=== PATIENT | female | born 2000 | race Two or more races ===

== ENCOUNTER 2024-08-26 14:25 | Emergency (ER) | payer MEDICAID, SELFPAY ==
[2024-08-26 15:08] VITALS: BP 101/63; PULSE 73; RESP 16; TEMP 37; O2SAT 100; BMI 25.4
--- NOTE | 2024-08-26 15:11 | PD.EDSKIN ---
ED Skin Abcess FB-RME/HPI General Chief complaint: Skin/Abscess/Foreign Body Stated complaint: Rash today after eating Time Seen by Provider: 08/26/24 14:38 Arrival date/time: 08/26/24 14:25 24-year-old female presents to department today for complaints of rash after eating shrimp today patient reports no difficulty breathing no difficulty swallowing Limitations: no limitations Related Data Previous Rx's ?Medication ?Instructions ?Recorded famotidine 20 mg tablet 20 mg PO QDAY #30 tabs 08/14/23 diphenhydramine HCl 25 mg capsule 25 mg PO Q8H PRN allergic symptoms 08/26/24 (Benadryl) #30 caps prednisone 10 mg tablet 30 mg (3 x 10 mg) PO BID 3 days 08/26/24 #18 tabs Allergies Allergy/AdvReac Type Severity Reaction Status Date / Time Penicillins Allergy Intermediate Hives Verified 08/26/24 14:30 Review of Systems Review of Systems Systems Reviewed: All systems reviewed, normal except as documented Constitutional Constitutional: Reports system reviewed and no additional complaints, except as documented, Denies fever(s) and Denies headache(s) Eyes Eyes: Reports system reviewed and no additional complaints, except as documented and Denies blurry vision ENT Ears, Nose, Mouth, and Throat: Reports system reviewed and no additional complaints, except as documented, Denies headache(s), Denies nasal congestion and Denies nasal discharge Cardiovascular Cardiovascular: Reports system reviewed and no additional complaints, except as documented, Denies chest pain and Denies dyspnea Respiratory Respiratory: Reports system reviewed and no additional complaints, except as documented, Denies chest congestion, Denies cough and Denies dyspnea Gastrointestinal Gastrointestinal: Reports system reviewed and no additional complaints, except as documented and Denies abdominal pain Integumentary/Breasts Skin/Breast: Reports system reviewed and no additional complaints, except as documented, Reports erythema, Reports pruritus and Reports rash Neurologic Neurologic: Reports system reviewed and no additional complaints, except as documented, Reports as per HPI and Denies headache(s) Past Medical History Past Medical History CARDIAC: Negative Congestive Heart Failure RESPIRATORY: Negative Chronic Obstructive Pulmonary Disease (COPD) GENITOURINARY: Negative Renal Disease ENDOCRINE: Negative Diabetes Mellitus Type 1 or Diabetes Mellitus Type 2 Social History SMOKING STATUS: Never smoker ED Exam General Limitations: Present no limitations General appearance: Present alert and in no apparent distress Head Head exam: Present atraumatic, normocephalic and normal inspection Eye Eye exam: Present normal appearance, PERRL and EOMI; Absent conjunctival injection ENT ENT exam: Present normal exam, normal oropharynx and mucous membranes moist Neck Neck exam: Present normal inspection, full ROM and trachea midline Chest Chest inspection: Present normal inspection and symmetric chest wall rise Respiratory Respiratory exam: Present normal lung sounds bilaterally; Absent respiratory distress Cardiovascular Cardiovascular exam: Present regular rate, normal rhythm and normal heart sounds Abdominal Exam Abdominal exam: Present soft and normal bowel sounds Extremities Exam Extremities exam: Present normal inspection and full ROM Back Exam Back exam: Present normal inspection and full ROM Neurological Exam Neurological exam: Present alert, oriented X3, CN II-XII intact, normal gait and reflexes normal; Absent motor sensory deficit Psychiatric Psychiatric exam: Present normal affect and normal mood Skin Skin exam: Present warm, dry, intact and rash Course Quality Measures none Orders Category Date Time Status Dexamethasone Inj [Decadron Inj] Med 08/26/24 15:10 Discontinued 10 mg IM X1 ONE DiphenhydrAMINE [Benadryl] Med 08/26/24 15:10 Discontinued 25 mg PO X1 ONE Vital Signs Vital signs: Vital Signs Temperature 98.6 F 08/26/24 15:08 Pulse Rate 73 08/26/24 15:08 Respiratory Rate 16 08/26/24 15:08 Blood Pressure 101/63 08/26/24 15:08 Pulse Oximetry (%) 100 08/26/24 15:08 Oxygen Delivery Method Room Air 08/26/24 15:08 O2 saturation 100% room air with normal Skin / Abscess / Foreign Body MDM Narrative MDM Narrative:: 24-year-old female presents to department today for complaints of rash after eating shrimp today patient reports no difficulty breathing no difficulty swallowing. Patient ports no chance On exam patient well-appearing patient does not appear toxic in no acute distress On exam patient has hives consistent with urticaria/allergic reaction Patient medicated here improved symptoms Patient discharged home in no distress to follow-up with primary care doctor in the next 24 to 48 hours and for any worsening symptoms to return to the ER immediately Patient data External records reviewed:: [facility] previous records Clinical information provided by:: patient Social determinants that could affect healthcare access:: none Patient has the following chronic illnesses:: None How is presenting disease/condition affected by chronic disease/condition?: no chronic disease Evaluation data The following diagnostics were reviewed and interpreted by me:: other (specify) Lab and/or radiology exams considered but not ordered:: Consider not ordered Interpretation Summary: N/A Medications / Prescriptions Medications or Prescriptions considered but not ordered:: Given Medication administrations:: Medication Administration History Discontinued Medications Dexamethasone Sodium Phosphate (Dexamethasone Sod Phos Inj 10 Mg/Ml Vial) 10 mg IM X1 ONE Stop: 08/26/24 15:11 Last Admin: 08/26/24 15:28 Dose: 10 mg Documented By: Diphenhydramine HCl (Diphenhydramine 25 Mg Capsule) 25 mg PO X1 ONE Stop: 08/26/24 15:11 Last Admin: 08/26/24 15:27 Dose: 25 mg Documented By: Given Consultations Consultation(s) initiated? (list below): No Diagnosis Skin/Abscess Differential Diagnosis: abscess of skin or subcutaneous tissue, urticaria and contact dermatitis Most likely diagnosis given after review of the tests above:: Allergic reaction Admission Indicated Admission indicated?: not indicated Admission Request Was there a request for admission?: No Disposition Plan Disposition Plan: Discharge Discharge Attestation Discharge Attestation: The patient and all family members were given an opportunity to ask questions and understood the discharge instructions. Discharge instructions specifically effects, indications for sooner follow up or return to the emergency department, and the expected course of current diagnosis. Patient condition: Stable Discharge Plan Plan Patient Disposition: HOME (Self Care) Discharge Disposition comment: Stable Prescriptions/Referrals Prescriptions/Med Rec: New prednisone 10 mg tablet 30 mg PO BID 3 Days Qty: 18 0RF diphenhydramine HCl [Benadryl] 25 mg capsule 25 mg PO Q8H PRN (Reason: allergic symptoms) Qty: 30 0RF No Action famotidine 20 mg tablet 20 mg PO QDAY Qty: 30 0RF Problem List Clinical Impression: Urticaria Patient/Caregiver Discharge Instructions Education Materials: ED Hives (Adult) Additional Instructions: Please follow up with your primary care doctor in the next 24-48hrs for any worsening symptoms return here immediately Print Language: Central African Stand Alone Forms: Arabella Award Info., Patient Portal Info Letter PA/GANG BORE OPERATOR Supervising Physician PA/GANG BORE OPERATOR Supervising Physician: Dr hogue
[2024-08-26] MEDS: DEXAMETHASONE SOD PHOS INJ 10 MG/ML VIAL IM (15:28)
== END 2024-08-26 16:15 | disposition home or self-care (01) ==
LOC: SERX 15:58
PROVIDERS: Emergency Provider Emergency Medicine; PCP Nurse Practitioner Family
DX: L50.9 Urticaria, unspecified (principal)
CPT/HCPCS: 96372; 99283; J1100; A9270

== ENCOUNTER 2024-11-18 17:48 | Emergency (ER) | payer MEDICAID, SELFPAY ==
[2024-11-18 18:45] VITALS: BP 110/64; PULSE 63; RESP 18; TEMP 36.8; O2SAT 99; BMI 23.5
--- NOTE | 2024-11-18 19:02 | EDNOTE_ITS ---
Lower Extremity Injury RME/HPI General Chief Complaint: Ankle/Foot Injury Stated Complaint: INGROWN TOENAIL, R) GREAT TOE Time Seen by Provider: 11/18/24 18:59 Arrival date/time: 11/18/24 17:48 24F with no significant PMH presents to ED with intermittent but worsening R ingrown toenail. Limitations: no limitations Related Data Previous Rx's ?Medication ?Instructions ?Recorded famotidine 20 mg tablet 20 mg PO QDAY #30 tabs 08/13 diphenhydramine HCl 25 mg capsule 25 mg PO Q8H PRN all ergic symptoms 08/26/24 (Benadryl) #30 caps sulfamethoxazole 800 1 tab PO BID 7 days #14 tabs 11/18/24 mg-trimethoprim 160 mg tablet (Bactrim DS) Allergies Allergy/AdvReac Type Severity Reaction Status Date / Time Penicillins Allergy Intermediate Hives Verified 11/18/24 17:51 Review of Systems Review of Systems Systems Reviewed: All systems reviewed, normal except as documented Integumentary/Breasts Skin/Breast: Reports as per HPI and Reports skin pain Past Medical History Past Medical History CARDIAC: Negative Congestive Heart Failure RESPIRATORY: Negative Chronic Obstructive Pulmonary Disease (COPD) GENITOURINARY: Negative Renal Disease ENDOCRINE: Negative Diabetes Mellitus Type 1 or Diabetes Mellitus Type 2 Social History SMOKING STATUS: Never smoker ED Exam General Limitations: Present no limitations General appearance: Present alert and in no apparent distress Head Head exam: Present atraumatic Neck Neck exam: Present normal inspection, full ROM and trachea midline Chest Chest inspection: Present normal inspection and symmetric chest wall rise Extremities Exam Extremities exam: Present full ROM Expanded Lower Extremity Exam Foot/toe exam: Present full ROM, swelling (R big toenail on R side) and erythema Neurological Exam Neurological exam: Present alert and oriented X3 Psychiatric Psychiatric exam: Present normal affect and normal mood Skin Skin exam: Present warm, dry, intact and normal color Course Quality Measures none Orders Category Date Time Status Naproxen [Naprosyn] Med 11/18/24 18:59 Once 500 mg PO X1 ONE Trimethoprim/Sulfa 160/800 Ds [Bactrim Ds] Med 11/18/24 19:00 Once 1 tab PO X1 ONE Vital Signs Vital signs: Vital Signs Temperature 98.2 F 11/18/24 18:45 Pulse Rate 63 11/18/24 18:45 Respiratory Rate 18 11/18/24 18:45 Blood Pressure 110/64 11/18/24 18:45 Pulse Oximetry (%) 99 11/18/24 18:45 Oxygen Delivery Method Room Air 11/18/24 18:45 O2 at 99% on RA and WNLs Extremity Injury, Lower MDM Narrative MDM Narrative:: 24F with no significant PMH presents to ED with intermittent but worsening R ingrown toenail. Physical exam reveals R ingrown big toenail on R side with some redness and swelling. Patient is afebrile, calm, and alert. Meds and disability counselor given. Patient data External records reviewed:: [facility] previous records Clinical information provided by:: patient Social determinants that could affect healthcare access:: none Patient has the following chronic illnesses:: none How is presenting disease/condition affected by chronic disease/condition?: no chronic disease Evaluation data The following diagnostics were reviewed and interpreted by me:: other (specify) (none) Lab and/or radiology exams considered but not ordered:: not ordered Interpretation Summary: n/a Medications / Prescriptions Medications or Prescriptions considered but not ordered:: ordered Medication administrations:: Medication Administration History Naproxen (Naproxen 250 Mg Tablet) 500 mg PO X1 ONE Stop: 11/18/24 19:00 Trimethoprim/Sulfamethoxazole (Trimethoprim/Sulfa 160/800 Ds Tablet) 1 tab PO X1 ONE Stop: 11/18/24 19:01 above Consultations Consultation(s) initiated? (list below): No Diagnosis Extremity Injury, Lower Differential Diagnosis: ankle sprain and strain, acute internal derangement of knee, puncture wound of foot, fracture of toe, ankle fracture and other (infected ingrown toenail) Most likely diagnosis given after review of the tests above:: infected ingrown toenail Admission Indicated Admission indicated?: not indicated Admission Request Was there a request for admission?: No Disposition Plan Disposition Plan: Discharge Discharge Attestation Discharge Attestation: The patient and all family members were given an opportunity to ask questions and understood the discharge instructions. Discharge instructions specifically effects, indications for sooner follow up or return to the emergency department, and the expected course of current diagnosis. Patient condition: Stable Discharge Plan Plan Patient Disposition: HOME (Self Care) Discharge Disposition comment: Stable Prescriptions/Referrals Prescriptions/Med Rec: New sulfamethoxazole-trimethoprim [Bactrim DS] 800-160 mg tablet 1 tab PO BID 7 Days Qty: 14 0RF No Action famotidine 20 mg tablet 20 mg PO QDAY Qty: 30 0RF diphenhydramine HCl [Benadryl] 25 mg capsule 25 mg PO Q8H PRN (Reason: allergic symptoms) Qty: 30 0RF Problem List Clinical Impression: Ingrown toenail with infection Patient/Caregiver Discharge Instructions Education Materials: ED Toenail Ingrown Infec Abx Onl Additional Instructions: Please follow-up with PCP within 24-48 hours and return immediately if symptoms worsen. See PCP for referral to podiatry. Print Language: Portuguese Stand Alone Forms: Patient Portal Info Letter PA/[employer] Supervising Physician PA/WILFRED Supervising Physician: Dr. Antonio
[2024-11-18] MEDS: TRIMETHOPRIM/SULFA 160/800 DS TABLET 1 TAB PO (19:16)
[2024-11-18] MEDS: NAPROXEN 250 MG TABLET 500 MG PO (19:16)
== END 2024-11-18 19:52 | disposition home or self-care (01) ==
LOC: SERX 19:26
PROVIDERS: Emergency Provider Emergency Medicine; PCP Family Medicine
DX: L60.0 Ingrowing nail (principal)
CPT/HCPCS: 99282; A9270